=== PATIENT | male | born 1975 | race Caucasian/White ===

== ENCOUNTER 2025-02-10 11:44 | Emergency (ER) | payer OTHER, SELFPAY ==
--- NOTE | ~2025-02-10 | CT_ITS ---
EXAMINATION: CT abdomen pelvis w con DATE: 02/10/2025 12:45 INDICATION: Left lower quadrant abdominal pain TECHNIQUE: Computed tomography (CT) of the abdomen and pelvis was performed with 100 mL Omnipaque-350 intravenous contrast. Automated exposure control and iterative reconstruction technique were employe d. The dose-length product was 655.15 mGy-cm. COMPARISON: None FINDINGS: Mild dependent atelectasis in bilateral lower lobes. Heart size is normal. No pericardial or pleural effusion. Liver, gallbladder, spleen, pancreas, bilateral adrenal glands and kidneys are normal. Blad abraham is normal. There several diverticula along the descending and sigmoid colon. There is prominent a symmetric wall thickening and some surrounding inflammatory stranding at the sigmoid colon suspicious for diverticulitis. No bowel obstruction. No free intraperitoneal gas or fluid. No pathologically en larged very small fat-containing right inguinal hernia. lymphadenopathy. No pathologically enlarged a bdominal or pelvic lymphadenopathy. Mild lumbar spondylosis. IMPRESSION: 1. Wall thickening and stranding about the sigmoid colon consistent with diverticulitis. If not recen tly previously performed would recommend colonoscopy when clinically improved to exclude malignancy w [facility] could present similarly. Reviewed, dictated and finalized at location A. IMPRESSION: 1. Wall thickening and stranding about the sigmoid colon consistent with divert iculitis. If not recently previously performed would recommend colonoscopy when clinically improved to exclude malignancy which could present similarly.
[2025-02-10 11:52] VITALS: BP 125/79; PULSE 89; RESP 16; TEMP 36.6; O2SAT 100
[2025-02-10 12:13] LABS: Add Urine Microscopic? NO; Appearance Urine Clear (Clear); Bilirubin Urine Negative (Negative); Blood Urine Negative (Negative); Color Urine Yellow (Yellow); Glucose Urine UA Negative (Negative); Ketones Urine Negative (Negative); Leukocyte Esterase Ur Negative LEU/UL (Negative); Nitrate Urine Negative (Negative); Protein Urine Negative (Negative); Specific Grav Ur 1.014 (1.001-1.035); pH Urine 6.5 (5.0-9.0)
[2025-02-10 12:16] VITALS: BP 120/71; PULSE 80; RESP 16; TEMP 36.6; O2SAT 99
[2025-02-10 12:22] LABS: Basophils Percent Auto 0.3 % (0.2-1.2); Eosinophils Absolute Auto 0.1 K/mm3 (0-0.3); Eosinophils Percent Auto 0.8 % (0-4.4); Hematocrit 43.8 % (42.0-52.0); Hemoglobin 14.3 g/dL (14.0-18.0); Immature Granulocyte Absolute 0.02 K/mm3 (0.00-0.031); Immature Granulocyte Percent A 0.3 % (0-0.5); Lymphocytes Absolute Auto 1.29 K/mm3 (0.9-3.2); Lymphocytes Percent Auto 17.6 % (18.3-44.2); Mean Corpuscular HGB Conc 32.6 g/dl (32-36); Mean Corpuscular Hemoglobin 28.9 pg (26-34); Mean Corpuscular Volume 88.7 fl (80-100); Mean Platelet Volume 9.9 fl (7.4-10.4); Monocytes Absolute Auto 0.9 K/mm3 (0.1-0.6); Monocytes Percent Auto 12.7 % (2.6-8.5); Neutrophils Percent Auto 68.3 % (45.5-73.1); Platelet Count Result 286 k/mm3 (150-375); Red Blood Count 4.94 M/mm3 (4.6-6.20); Red Cell Distribution Width 12.6 % (11.5-14.5); White Blood Count 7.3 K/mm3 (4.5-10.0)
[2025-02-10 12:25] LABS: Alanine Aminotransferase 53 U/L (6-50); Albumin Level 4.7 g/dL (3.5-5.1); Alkaline Phosphatase 77 U/L (38-126); Anion Gap 9 mmol/L (4-12); Aspartate Amino Transferase 43 U/L (17-59); Blood Urea Nitrogen 16 mg/dL (9-20); Carbon Dioxide 27 mmol/L (22-30); Chloride 101 mmol/L (98-107); Estimated CRCL calculation 89 ml/min; Estimated Glomerular Filt Rate > 60; Glucose 100 mg/dL (65-110); Potassium 4.2 mmol/L (3.4-5.0); Sodium 137 mmol/L (137-145)
[2025-02-10 12:31] VITALS: BP 119/73; PULSE 87; RESP 16; TEMP 36.6; O2SAT 98
--- OUTSIDE RECORDS SUMMARY | 2025-02-10 13:17 | XMS_ITS | Referral Summary ---
Author Organization [address] [address] Care Team Providers Care Gravity Flow Irrigator Name Role Phone Unknown, Notinfile Primary Care Provider Unavail able Encounters Date Type Department Care Team Description 02/10/2025 10:30 AM CDT Office Visit [facility] at [address] [phone] Nikki Ibrahim PA Left lower quadrant abdominal pain (Primary Dx) from Last 3 Months Allergies Active Allergy Reactions Criticality Noted Date Comments Penicillins Rash Medium 10/06/2012 Medications No known medications Active Problems No known active problems Social History Tobacco Use Types Packs/Day Years Used Date Smoking Tobacco: Never Assessed Sex and Gender Information Value Date Recorded Sex Assigned at Not on file Legal Sex Male 10:17 AM CDT Gender Identity Not on file Sexual Orientation Not on file Last Filed Vital Signs Vital Sign Reading Time Taken Comments Blood Pressure 123/86 02/10/2025 10:31 AM CDT Pulse 95 02/10/2025 10:31 AM CDT Temperature 37.4 C (99.4 F) 02/10/2025 10:31 AM CDT Respiratory Rate 20 02/10/2025 10:31 AM CDT Oxygen Saturation 98% 02/10/2025 10:31 AM CDT Inhaled Oxygen Concentration - - Weight 93 kg (205 lb) 02/10/2025 10:31 AM CDT Height - - Body Mass Index - - Plan of Treatment Not on file Procedures Procedure Name Priority Date/Time Associated Diagnosis Comments POCT URINALYSIS DIPSTICK Routine 02/10/2025 10:36 AM CDT Left lower quadrant abdominal pain from Last 3 Months Results * POCT urinalysis dipstick (02/10/2025 10:36 AM CDT) Color, Urine, POC Colorless Clarity, ur, POC Clear Clear Glucose, ur, POC Negative Negative Bilirubin, ur, POC Negative Negative Ketones, ur, POC Negative Negative Specific [place], POC 1.010 1.003 - 1.030 Blood, ur, POC Negative Negative pH, ur, POC 7.0 5.0 - 8.0 Protein, ur, POC Negative Negative Urobilinogen, urine, POC 0.2 0.2 - 1.0 mg/dL Nitrite, ur, POC Negative Negative Leukocytes, ur, POC Negative Negative Lot Number [id number] Urine 02/10/2025 10:3 6 AM CDT Nikki HORNER POINT OF CARE TEST ORDER FRANKIE Final Result from Last 3 Months Insurance [facility] Care Teams Gravity Flow Irrigator Relationship Specialty Start Date End Date Unknown, Notinfile PCP - General 02/10/25
--- OUTSIDE RECORDS SUMMARY | 2025-02-10 13:17 | XMS_ITS | Encounter Summary ---
Author Organization [facility] Healthcare Address [address] [place] [address] Care Team Providers Care Lab Associate Name Role Phone Unknown, Notinfile Primary Care Provider Unavail able Reason for Visit * Reason Comments Urinary Symptom Started yesterday wi th symptoms. Pain in pubic area to back. Hx of kidney stones about 20 years. Encounter Details Date Type Department Care Team (Late Contact Info) Description 02/10/2025 10:30 AM CDT Office Visit [facility] at [address] [phone] Nikki Ibrahim PA [address] [place] [address] [address] [place] [address] Left lower quadrant abdominal pain (Primary Dx) Social History Tobacco Use Types Packs/Day Years Used Date Smoking Tobacco: Never Assessed Sex and Gender Information Value Date Recorded Sex Assigned at Not on file Legal Sex Male 10:17 AM CDT Gender Identity Not on file Sexual Orientation Not on file documented as of this encounter Last Filed Vital Signs Vital Sign Reading [...] - - Body Mass Index - - documented in this encounter Progress Notes * Nikki Ibrahim PA - 02/10/2025 10:30 AM CDT Images from the original note were not included. Subjective/Objective Patient ID: Kj Wright is a 49 y.o. male. Chief Complaint Urinary Symptom (Started yesterday with symptoms. Pain in pubic area to back. Hx of kidney stones about 20 years. ) Pt presents w/ urinary symptoms x 1 day. He reports frequency, lower abdominal pressure, and BA/chills. Also has left lower back pain. Had loose stools yesterday x 4. No urgency, dysuria, hematuria, penile discharge. No fever. No concern for STDs. Review of Systems All systems reviewed and are negative or non contributory for this patient's presentation today other than as stated in the HPI . Physical Exam Constitutional: General: He is not in acute distress. HENT: Head: Normocephalic and atraumatic. Mouth/Throat: Pharynx: Oropharynx is clear. Eyes: Pupils: Pupils are equal, round, and reactive to light. Cardiovascular: Rate and Rhythm: Normal rate. Pulmonary: Effort: Pulmonary effort is normal. Abdominal: General: There is no distension. Palpations: Abdomen is soft. Tenderness: There is abdominal tenderness (moderate ttp LLQ). There is no right CVA tenderness, left CVA tenderness, guarding or rebound. Musculoskeletal: General: Normal range of motion. Cervical back: Normal range of motion. Skin: General: Skin is warm and dry. Neurological: General: No focal deficit present. Mental Status: He is alert and oriented to person, place, and time. Psychiatric: Mood and Affect: Mood normal. Behavior: Behavior normal. Vitals: 02/10/25 1031 BP: 123/86 Pulse: 95 Resp: 20 Temp: 37.4 Â°C (99.4 Â°F) TempSrc: Temporal SpO2: 98% Weight: 93 kg (205 lb) Assessment/Plan -pt presents w/ urinary frequency, lower abdominal pressure, and upon further questioning reports 4loose stools yesterday -pt w/ significant LLQ abdominal tenderness on exam -also w/ low grade temp 99.4 in clinic with hx of BA, chills, nausea -pt states he is not sure but thinks he may have hx of diverticulosis on his last colonoscopy, alsoreports recently eating a lot of trail mix/nuts -given clinical picture, concern for diverticulitis -pt referred to ED for further evaluation and management Diagnoses and all orders for this visit: Left lower quadrant abdominal pain (Primary) - Urine culture Urine, clean voided; Future - POCT urinalysis dipstick Recent Results (from the past 4 hours) POCT urinalysis dipstick Collection Time: 02/10/25 10:36 AM Result Value Ref Range Color, Urine, POC Colorless Clarity, ur, POC Clear Clear Glucose, ur, POC Negative Negative Bilirubin, ur, POC Negative Negative Ketones, ur, POC Negative Negative Specific [place], POC 1.010 1.003 - 1.030 Blood, ur, POC Negative Negative pH, ur, POC 7.0 5.0 - 8.0 Protein, ur, POC Negative Negative Urobilinogen, urine, POC 0.2 0.2 - 1.0 mg/dL Nitrite, ur, POC Negative Negative Leukocytes, ur, POC Negative Negative Lot Number [id number] Disposition ER [facility] 02/10/25 11:02 AM Cosigned by Jamaal Griffith MD at 02/10/2025 11:17 AM CDT documented in this encounter Plan of Treatment Scheduled Orders Name Type Priority Associated Diagnoses Orde r Schedule Urine culture Urine, clean voided Microbiology Routine Left lower quadrant abdominal pain Expected: 02/10/2025, Expires: 02/10/2026 documented as of this encounter Procedures Procedure Name Priority Date/Time Associated Diagnosis Comments POCT URINALYSIS DIPSTICK Routine 02/10/2025 10:36 AM CDT Left lower quadrant abdominal pain documented in this encounter Results * POCT urinalysis dipstick (02/10/2025 10:36 AM CDT) Color, Urine, POC Colorless Clarity, ur, POC Clear Clear Glucose, ur, POC Negative Negative Bilirubin, ur, POC Negative Negative Ketones, ur, POC Negative Negative Specific [place], POC 1.010 1.003 - 1.030 Blood, ur, POC Negative Negative pH, ur, POC 7.0 5.0 - 8.0 Protein, ur, POC Negative Negative Urobilinogen, urine, POC 0.2 0.2 - 1.0 mg/dL Nitrite, ur, POC Negative Negative Leukocytes, ur, POC Negative Negative Lot Number [id number] Urine 02/10/2025 10:3 6 AM CDT Nikki HORNER POINT OF CARE TEST ORDER FRANKIE Final Result documented in this encounter Visit Diagnoses Diagnosis Left lower quadrant abdominal pain- Primary documented in this encounter Care Teams Lab Associate Relationship Specialty Start Date End Date Unknown, Notinfile PCP - General 02/10/25 documented as of this encounter
--- OUTSIDE RECORDS SUMMARY | 2025-02-10 13:17 | XMS_ITS | Continuity of Care Document ---
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 Screening 1975 Regular Well Visit/Exam 18-64 1994 Covid-19 Vaccine ( - season) 2024 01/26/2021, 12/29/2020 DTaP/Tdap/Td Vaccine (3 - Td or Tdap) 03/20/2028 03/20/2018, 10/20/2012, 09/24/2012, Additional history exists Hepatitis B Screening Completed 02/19/2016 , 01/17/2015, 04/13/2014 Influenza Vaccine Completed 07/26/2024, , 08/28/2022, Additional history exists Pneumococcal vaccine <65 Aged Out No longer eligible based on patient's age to complete this topic Procedures Procedure Name Priority Date/Time Associated Diagnosis Comments POCT URINALYSIS DIPSTICK Routine 02/10/2025 10:36 AM CDT Left lower quadrant abdominal pain from Last 3 Months Results * POCT urinalysis dipstick (02/10/2025 10:36 AM CDT) Color, Urine, POC Colorless Clarity, ur, POC Clear Clear Glucose, ur, POC Negative Negative Bilirubin, ur, POC Negative Negative Ketones, ur, POC Negative Negative Specific [place], POC 1.010 1.003 - 1.030 Blood, ur, POC Negative Negative pH, ur, POC 7.0 5.0 - 8.0 Protein, ur, POC Negative Negative Urobilinogen, urine, POC 0.2 0.2 - 1.0 mg/dL Nitrite, ur, POC Negative Negative Leukocytes, ur, POC Negative Negative Lot Number [id number] Urine 02/10/2025 10:3 6 AM CDT Nikki HORNER POINT OF CARE TEST ORDER FRANKIE Final Result from Last 3 Months Insurance [facility] Care Teams Medical Front Desk Specialist Relationship Specialty Start Date End Date Unknown, [place] PCP - General 02/10/25 "
--- NOTE | 2025-02-10 13:19 | ED.ABDPAIN ---
HPI - Abdominal Pain General Chief Complaint: Abdominal Pain Stated Complaint: Abd pain-left lower rad to back, fever Time Seen by Provider: 02/10/25 12:09 History of Present Illness HPI narrative: Patient is a 49-year-old male who presents ER with left lower quadrant abdominal pain. Began yesterday and slowly increased. Today's having pain with bumps while driving. No alleviating factors outside of rest. No diarrhea or constipation. Urinary frequency but no dysuria or hematuria. History kidney stones but this feels different. Had a colonoscopy in [place] that showed diverticula but no history of diverticulitis. Related Data Allergies Allergy/AdvReac Type Severity Reaction Status Date / Time Penicillins AdvReac Intermediate Other Verified 02/10/25 11:47 Review of Systems Review of Systems: All systems reviewed & are unremarkable except as noted in HPI and below Constitutional: Constitutional: Reports no additional constitutional complaints ENT: Reports system reviewed and no additional complaints, except as documented Cardiovascular: Cardiovascular: Reports no additional cardiovascular complaints Respiratory: Respiratory: Reports no additional respiratory complaints Gastrointestinal: Gastrointestinal: Reports no additional gastrointestinal complaints [facility] Past Medical History Medical History (Updated 02/10/25 @ 13:22 by Alcon Fermin MD) Diverticula of colon Surgical History Surgical History (Updated 02/10/25 @ 13:20 by Alcon Fermin MD) History of colonoscopy Exam Narrative: GENERAL: Well-appearing, well-nourished, and in no acute distress. HEAD: Normocephalic, atraumatic. ENT: Mucous membranes moist. NECK: Supple. CHEST: Clear to auscultation. No respiratory distress. HEART: Regular rate and rhythm. Normal peripheral pulses. ABDOMEN: Soft, nontender, nondistended. EXTREMITIES: Normal range of motion. No edema. SKIN: Warm, dry, no rash. NEURO: Alert and oriented x3. PSYCH: Normal mood and affect. Course Course Emergency Course: Patient educated about diagnosis and treatment plan. Discharge with oral antibiotics. Follow-up with PCP. Vital Signs Vital signs: Vital Signs Temperature 97.9 F 02/10/25 11:52 Pulse Rate 89 02/10/25 11:52 Respiratory Rate 16 02/10/25 11:52 Blood Pressure 125/79 02/10/25 11:52 Pulse Oximetry 100 02/10/25 11:52 Oxygen Delivery Room Air 02/10/25 11:52 Temperature 97.9 F 02/10/25 12:31 Pulse Rate 87 02/10/25 12:31 Respiratory Rate 16 02/10/25 12:31 Blood Pressure 119/73 02/10/25 12:31 Pulse Oximetry 98 02/10/25 12:31 Oxygen Delivery Room Air 02/10/25 11:52 MDM - Abdominal Pain Lab Data 02/10/25 11:59 02/10/25 11:59 Labs: Lab Results 02/10/25 Range/Units 11:59 WBC 7.3 (4.5-10.0) K/mm3 RBC 4.94 (4.6-6.20) M/mm3 Hgb 14.3 (14.0-18.0) g/dL Hct 43.8 (42.0-52.0) % MCV 88.7 (80-100) fl MCH 28.9 (26-34) pg MCHC 32.6 (32-36) g/dl RDW 12.6 (11.5-14.5) % Plt Count 286 (150-375) k/mm3 MPV 9.9 (7.4-10.4) fl Immature Gran % (Auto) 0.3 (0-0.5) % Neut % (Auto) 68.3 (45.5-73.1) % Lymph % (Auto) 17.6 L (18.3-44.2) % [place] % (Auto) 12.7 H (2.6-8.5) % Eos % (Auto) 0.8 (0-4.4) % Baso % (Auto) 0.3 (0.2-1.2) % Lymph # (Auto) 1.29 (0.9-3.2) K/mm3 [place] # (Auto) 0.9 H (0.1-0.6) K/mm3 Eos # (Auto) 0.1 (0-0.3) K/mm3 Baso # (Auto) 0.0 (0.0-0.1) K/mm3 Abs Immat Gran (auto) 0.02 (0.00-0.031) K/mm3 Absolute Neuts (auto) 5.0 (1.3-6.7) K/mm3 Absolute Nucleated RBC 0.000 (0.0-0.012) K/mm3 Nucleated RBC % 0.0 (0.0-0.2) % Sodium 137 (137-145) mmol/L Potassium 4.2 (3.4-5.0) mmol/L Chloride 101 (98-107) mmol/L Carbon Dioxide 27 (22-30) mmol/L Anion Gap 9 (4-12) mmol/L BUN 16 (9-20) mg/dL Creatinine 1.02 (0.7-1.3) mg/dL Estim Creat Clear Calc 89 ml/min Estimated GFR > 60 (59 - ) Glucose 100 (65-110) mg/dL Calcium 10.0 (8.4-10.2) mg/dL Total Bilirubin 1.0 (0.2-1.3) mg/dL AST 43 (17-59) U/L ALT 53 H (6-50) U/L Alkaline Phosphatase 77 (38-126) U/L Total Protein 8.0 (6.3-8.2) g/dL Albumin 4.7 (3.5-5.1) g/dL Urine Color Yellow (Yellow) Urine Appearance Clear (Clear) Urine pH 6.5 (5.0-9.0) Ur Specific [place] 1.014 (1.001-1.035) Urine Protein Negative (Negative) mg/dL Urine Glucose (UA) Negative (Negative) mg/dL Urine Ketones Negative (Negative) mg/dL Ur Blood (Man) Negative (Negative) Urine Nitrate Negative (Negative) Urine Bilirubin Negative (Negative) Urine Urobilinogen 1.0 (<2.0) mg/dL Leukocyte Esterase Rfl Negative (Negative) SALAS/UL Imaging Data Radiologist's impression: ITS Impressions Abdomen/Pelvis CT 02/10/25 12:49 IMPRESSION: 1. Wall thickening and stranding about the sigmoid colon consistent with diverticulitis. If not recently previously performed would recommend colonoscopy when clinically improved to exclude malignancy which could present similarly. Discharge Plan Discharge Clinical Impression: Diverticulitis Patient Disposition: Home Condition: Stable Instructions: Antibiotic Form, Diverticulitis (ED), Diverticulitis Diet (ED) Additional Instructions: Return to the emergency department if you develop severe abdominal pain, severe nausea and vomiting to the point where you are unable to keep down fluids, if you develop chest pain or difficulty breathing, blood in your stool, dizziness or fainting, or if you develop any other new or concerning symptoms as these could be signs of more serious medical illness. Try to stay well hydrated. Patient Language: [place] Prescriptions: New ciprofloxacin HCl 500 mg tablet 500 mg PO Q12H Qty: 14 0RF metronidazole 500 mg tablet 500 mg PO Q8H Qty: 21 0RF Follow-up/Referrals: Jorge Weathers MD [Physician] - 1 Week UNKNOWN,DOCTOR [Primary Care Provider] -
[2025-02-10 13:35] VITALS: BP 124/78; PULSE 82; RESP 16; TEMP 36.6; O2SAT 98
== END 2025-02-10 13:36 | disposition home or self-care (01) ==
PROVIDERS: Emergency Medicine; Emergency Provider Emergency Medicine
DX: K57.92 Diverticulitis of intestine, part unspecified, without perforation or abscess without bleeding (principal)
CPT/HCPCS: 36415; 74177; 80053; 81003; 85025; 99284; Q9967

== ENCOUNTER 2025-08-29 00:31 | Day surgery (SDC) | payer OTHER, SELFPAY ==
[2025-08-24 08:54] VITALS: BMI 30.2
[2025-08-29 07:14] VITALS: BP 122/91; PULSE 81; RESP 18; TEMP 36.1; O2SAT 98; BMI 31.2
[2025-08-29] MEDS: LACTATED RINGERS 1,000 ML 150 ML IV CONT (07:22)
--- NOTE | 2025-08-29 07:36 | P.PNAN_ITS ---
Anes - Initial Pre Proc Eval Procedure: Operation Date: 08/29/25 08:30 Proposed Procedures p Diagnostic Colonoscopy - Neftaly Alcaraz MD Date/Time: 08/29/25 07:36 Surgeon: Neftaly Alcaraz MD Pre Op Diagnosis: Diverticulitis of intestine, part unspecified, wit Patient Data Age: 49 Gender: M Height: 1.75 m Weight: 96 kg Last Vital Signs Temp 36.1 C L 08/29/25 07:14 Pulse 81 08/29/25 07:14 Resp 18 08/29/25 07:14 BP 122/91 H 08/29/25 07:14 Pulse Ox 98 08/29/25 07:14 O2 Del Method Room Air 08/29/25 07:14 Allergies Allergy/AdvReac Type Severity Reaction Status Date / Time Penicillins AdvReac Intermediate Other Verified 08/29/25 07:13 Home Medications ?Medication ?Instructions ?Recorded ?Confirmed ?Type lisinopril 5 mg tablet 5 mg PO DAILY 08/08/2508/29 History Patient hx anesthesia problems: none Family hx anesthesia problems: none Results Review: All pre-operative results and documents have been reviewed as part of the pre- operative evaluation. [facility] Past Medical History Medical History Diverticula of colon Surgical History Surgical History History of colonoscopy Social History Social History Smoking status: Former smoker Tobacco type: cigarettes Living arrangements: with family Spiritual care concerns: No Anes - Eval Final PreProcedure Day of Procedure 08/29/25 07:36 Patient weight: obese Heart: regular rate and rhythm Lungs: clear to auscultation Airway: Mallampati scale class II Neurological: alert and oriented Last oral intake: >/= 8 hours ASA classification: III Emergent: no Anesthetic plan: proceed Anesthesia type and monitoring: general GIVS and standard monitoring Results Review: All pre-operative results and documents have been reviewed as part of the pre- operative evaluation. Informed Consent: The patient's anesthetic plan and its attendant risks and benefits were discussed with the patient/family/POA. Questions were solicited and answers provided to the satisfaction of the patient/family/POA.
--- NOTE | 2025-08-29 08:11 | WPDHPUPDATE1 ---
History and Physical Update Update Date/Time: 08/29/25 08:11 History and Physical has been reviewed, including an updated exam of the patient. There are NO changes in the patient's condition. Risks, benefits, and alternatives have been discussed and questions answered. Patient agrees to proceed with procedure.
[2025-08-29 08:31] VITALS: BP 107/73; PULSE 78; RESP 25; O2SAT 98
[2025-08-29 08:41] VITALS: BP 115/75; PULSE 84; RESP 20; O2SAT 98
[2025-08-29 08:51] VITALS: BP 115/79; PULSE 75; RESP 18; O2SAT 100
== END 2025-08-29 09:00 | disposition home or self-care (01) ==
PROVIDERS: PCP Emergency Medicine; Referring Provider Nurse Practitioner Family; Visit Provider Internal Medicine Gastroenterology
PROC: 0DJD8ZZ Inspection of Lower Intestinal Tract, Via Natural or Artificial Opening Endoscopic (ICD-10-PCS; CPT 45378; principal; 2025-08-29 08:30)
DX: K57.30 Diverticulosis of large intestine without perforation or abscess without bleeding (principal); K64.8 Other hemorrhoids; Z87.891 Personal history of nicotine dependence; E66.9 Obesity, unspecified; Z68.31 Body mass index [BMI] 31.0-31.9, adult
CPT/HCPCS: 45378; J2003; J2704; J7120